=== PATIENT | male | born 1970 | race Two or more races ===

== ENCOUNTER 2024-07-07 08:50 | Day surgery (SDC) | payer MEDICAID, SELFPAY ==
[2024-07-06 08:53] VITALS: BMI 30.7
--- NOTE | 2024-07-06 09:08 | EKG_ITS ---
[facility] Test Date: 2024-07-06 Pat Name: KAREN ZEPEDA Department: Room: - Gender: Male [employer] Professor: SERGIO : 1970 Requested By: Hammad Sparks Order Number: [id number] Reading MD: Hammad Sparks Measurements Intervals [place] Rate: 61 P: 28 ID: [id number] QRS: 0 QRSD: 101 T: -2 QT: 386 QTc: 390 Interpretive Statements SINUS RHYTHM LOW QRS VOLTAGE IN PRECORDIAL LEADS No previous ECG available for comparison /[email or web address]/[id number].pdf
[2024-07-06 09:16] LABS: Collection Type, Urine Clean Catch; Squamous Epithelial Cell,Urine 0 /hpf (0-5)
[2024-07-06 10:50] LABS: Basophils % (Auto) 0 % (0-2.5); Eosinophils # (Auto) 0.3 Thou/mm3 (0.0-0.5); Eosinophils % (Auto) 3 % (0-10); Hematocrit 42.2 % (41.0-53.0); Hemoglobin 14.3 g/dL (13.5-16.0); Immature Granulocytes % (Auto) 0 % (0-0); Immature Granulocytes Auto 0.02 Thou/mm3 (0.00-0.00); Lymphocytes # (Auto) 3.8 Thou/mm3 (1.0-4.8); Lymphocytes % (Auto) 39 % (10-50); Mean Corpuscular HGB Conc 33.9 g/dl (31.0-37.0); Mean Corpuscular Hemoglobin 34.3 pg (25.0-35.0); Mean Corpuscular Volume 101 fL (80-100); Monocytes # (Auto) 0.6 Thou/mm3 (0.0-0.8); Monocytes % (Auto) 6 % (0-12); Neutrophils # (Auto) 5.1 Thou/mm3 (1.8-7.7); Neutrophils % (Auto) 52 % (37-80); Nucleated Red Blood Cell % 0 /100 WBC (0); Platelet Count 302 Thou/mm3 (140-440); RDW Standard Deviation 49.2 fL (35.1-43.9); Red Blood Count 4.17 Miln/mm3 (4.50-5.90); White Blood Count 9.8 Thou/mm3 (3.8-10.6)
[2024-07-06 10:55] LABS: Bilirubin,Urine Negative (Negative); Blood,Urine Negative (Negative); Clarity,Urine Clear (Clear/Hazy); Color,Urine Colorless (Lt Yel-Yel); Glucose, Urine Negative (Negative); Ketones,Urine Negative (Negative); Leukocyte Esterase,Urine Negative (Negative); Nitrite,Urine Negative (Negative); PH,Urine 6.5 (5.0-7.0); Protein,Urine Negative (Neg - Trace); RBC,Urine 1 /hpf (0-3); Specific Gravity,Urine 1.008 (1.001-1.035); Urobilinogen,Urine Negative mg/dL (0.0-1.0); WBC,Urine < 1 /hpf (0-5)
[2024-07-06 11:04] LABS: Alanine Aminotransferase 35 U/L (10-49); Albumin, Serum 4.5 gm/dL (3.5-5.0); Albumin/Globulin Ratio 1.7 (1.2-2.2); Alkaline Phosphatase 61 U/L (46-116); Anion Gap 8 (7-16); Aspartate Amino Transferase 39 U/L (0-34); BUN/Creatinine Ratio 13 Ratio (12-20); Bilirubin,Total 0.5 mg/dL (0.3-1.2); Blood Urea Nitrogen 14 mg/dL (9-23); Calcium 9.2 mg/dL (8.3-10.6); Calcium (Corrected) 9.2 mg/dL (8.5-10.1); Chloride 104 mMol/L (98-107); Creatinine (Component) 1.1 mg/dL (0.6-1.3); Estimated Creatinine Clearance 71.2 mL/min (>60); Globulin 2.7 gm/dL (2.3-3.5); Glucose 93 mg/dL (74-106); Osmolality,Calculated 279 (275-295); Potassium 3.9 mMol/L (3.4-5.1); Sodium 140 mMol/L (136-145); Total Protein 7.2 gm/dL (5.7-8.2); eGFR > 60 See Note
--- NOTE | 2024-07-06 12:22 | ESHP_ITS ---
RE: KAREN ZEPEDA : 1970 DATE OF ADMISSION: 07/07/2024 HISTORY OF PRESENT ILLNESS: The patient is a 53-year-old male who was referred to me with elevated PSA. He has nocturia one time. His urinary flow is fair. PAST SURGICAL HISTORY: Appendectomy. PAST MEDICAL HISTORY: No history of diabetes mellitus. He has a history of hypertension. HOME MEDICATIONS: He takes benazepril once a day. ALLERGIES: NONE KNOWN. SOCIAL HISTORY: He has 3 children. PHYSICAL EXAMINATION: HEENT: Normal. NECK: Supple. LUNGS: Clear. CARDIOVASCULAR: Heart sounds are normal. ABDOMEN: Soft. EXTREMITIES: Normal. GENITOURINARY: Phallus is normal. Testes are down in the scrotum. RECTAL: Revealed mildly enlarged smooth prostate without any hard nodules. LABORATORY DATA: The patient's PSA is 8.6. PLAN: Cystoscopy, transrectal prostatic ultrasound with ultrasound-guided prostatic needle biopsy. Planned procedure risks and complications have been discussed with the patient. The patient understood them and agreed to proceed. cc: [facility] DT: 11:44:03 TT: 12:21:00 Ref: [id number] - TID: [id number]
[2024-07-07 09:21] VITALS: BP 134/73; PULSE 53; RESP 14; TEMP 36.4; O2SAT 99; BMI 30.7
[2024-07-07] MEDS: RINGERS LACTATED 1000 ML 1,000 ML 20 ML IV (09:26)
[2024-07-07 10:10] VITALS: BP 97/64; PULSE 58; RESP 14; TEMP 36.4; O2SAT 97
--- NOTE | 2024-07-07 10:10 | SUR.PHASEII ---
pt received from OR in recovery bay 4. pt awake and alert, breathing unlabored on room air. v/s stable. report received from Raina LORA and Dr. Wisdom.
[2024-07-07 10:15] VITALS: BP 105/70; PULSE 51; RESP 18; TEMP 36.3; O2SAT 97
[2024-07-07 10:20] VITALS: BP 110/76; PULSE 55; RESP 18; TEMP 36.3; O2SAT 97
--- NOTE | 2024-07-07 10:20 | SUR.PHASEII ---
pt able to tolerate oral fluids without difficulty swallowing or nausea/vomiting.
[2024-07-07 10:25] VITALS: BP 101/69; PULSE 50; RESP 16; TEMP 36.3; O2SAT 97
[2024-07-07 10:40] VITALS: BP 112/75; PULSE 51; RESP 17; TEMP 36.3; O2SAT 99
--- NOTE | 2024-07-07 11:10 | SUR.PHASEII ---
pt awake and alert, breathing unlabored on room air. v/s stable. pt able to ambulate to wheelchair with steady gait. d/c instructions given with Nilo in room using pure culture operator Krysta vinson, all questions answered. pt d/c via wheelchair with all belongings.
--- NOTE | 2024-07-07 19:16 | ESOP_ITS ---
RE: KAREN ZEPEDA : 1970 DATE OF OPERATION: 07/07/2024 PREOPERATIVE DIAGNOSES: , prostatic obstruction, elevated PSA of 8.6. PREOPERATIVE DIAGNOSES: , prostatic obstruction, elevated PSA of 8.6. PROCEDURES PERFORMED: Cystoscopy, urethral dilatation, transrectal prostatic ultrasound with ultrasound-guided prostatic needle biopsy. ANESTHESIA: Monitored anesthesia by Dr. Wisdom. INDICATION: The patient is a 53-year-old male with elevated PSA of 8.6 with nocturia. Rectally, he has a moderately enlarged prostate without any hard nodules. He was now scheduled to have cystoscopy and transrectal prostatic ultrasound with ultrasound-guided prostatic needle biopsy. Planned procedure, risks and complications have been discussed with the patient. The patient understood them and agreed to proceed. DESCRIPTION OF PROCEDURE: After the patient was brought to the operating table under adequate monitored anesthesia and dorsal lithotomy position, parts were prepped and draped in the usual fashion. Cystoscopy was then carried out, which revealed adequate urethral meatus, normal-appearing urethra, medium-sized bilobed prostate with minimum median lobe enlargement, residual urine, 2 ounces yellow and clear. Bladder mucosa was moderately trabeculated. There were no intravesical stones or tumors. Ureteral orifices were found to be normal in position and appearance. Scope was withdrawn. Urethra was dilated. The patient was then turned in left lateral position. Transrectal prostatic ultrasound was then carried out. Biopsies were obtained from both lobes. Using ultrasound guidance, prostatic volume was measured at 23 cubic centimeters. The patient tolerated the entire procedure well and left the room in good condition. DT: 10:20:44 TT: 18:51:00 Ref: [id number] - TID: [id number]
== END 2024-07-07 11:10 | disposition home or self-care (01) ==
PROVIDERS: Anesthesiology; PCP Family Medicine; Referring Provider Surgery; Visit Provider Surgery
PROC: (CPT 55700; principal; 2024-07-07 10:30)
PROC: 0TJB8ZZ Inspection of Bladder, Via Natural or Artificial Opening Endoscopic (ICD-10-PCS; CPT 52000; 2024-07-07 10:30)
DX: C61 Malignant neoplasm of prostate (principal); N40.1 Benign prostatic hyperplasia with lower urinary tract symptoms; R97.20 Elevated prostate specific antigen [PSA]; I10 Essential (primary) hypertension; Z01.810 Encounter for preprocedural cardiovascular examination
CPT/HCPCS: 52281; 55700; 36415; 76942; 80048; 80053; 81001; 85025; 87086; 93005; A4217; A4649; J0694; J2250; J2704; J3010; J7120

== ENCOUNTER → 2024-08-20 | Outpatient (CLI) | payer MEDICAID, SELFPAY ==
--- NOTE | 2024-08-20 08:00 | XR_ITS ---
Examination: CT pelvis without intravenous contrast. 2-D sagittal and coronal reconstructions. Date and time of exam:August 20, 2024 0834 hrs. Indications: Diagnosis prostate cancer June 2024, staging CTDI: vol (mGy) :6 DLP: (mGycm) : 194 Technique: Multiple 3 mm axial sections of the pelvis have been obtained with the 64 slice high resolution scanner. 2-D sagittal and coronal reconstructions. Low dose protocols were performed. One or more of the following dose reduction techniques were used; automated exposure control, adjustment of the mA and/or KV according to patient size, use of iterative reconstruction technique. Findings: No lower abdominal adenopathy No common iliac and external iliac or common femoral lymphadenopathy Normal seminal vesicles Transverse prostate dimension 3.6 cm Contracted urinary bladder 5 mm sclerotic focus right femoral head 6 mm sclerotic focus posterior left acetabulum Impression: No pelvic lymphadenopathy Sclerotic foci right femoral head posterior left acetabulum, recommend whole body bone scan follow-up to exclude osteoblastic metastatic disease
== END | disposition home or self-care (01) ==
PROVIDERS: PCP Family Medicine; Referring Provider Surgery; Visit Provider Surgery
DX: M89.8X5 Other specified disorders of bone, thigh (principal); C61 Malignant neoplasm of prostate
CPT/HCPCS: 72192

== ENCOUNTER → 2024-09-01 | Outpatient (CLI) | payer MEDICAID, SELFPAY ==
--- NOTE | 2024-09-01 13:00 | XR_ITS ---
Examination: Bone scan whole body, radioisotope Date and time of exam: September 01, 2024 at 1308 hrs. Indications: Diagnosis malignant neoplasm prostate June 2024 staging Technique: Study has been performed with intravenous administration of 23.4 mci 99M technetium MDP. Anterior, posterior whole body images are obtained. Images have been obtained including the lower extremities. Findings: Minimal increased uptake right knee Impression: No findings diagnostic for osseous metastatic disease
== END | disposition home or self-care (01) ==
PROVIDERS: PCP Family Medicine; Referring Provider Surgery; Visit Provider Surgery
DX: C61 Malignant neoplasm of prostate (principal)
CPT/HCPCS: 78306; A9503